=== PATIENT | female | born 2000 | race Caucasian/White ===

== ENCOUNTER 2025-08-04 10:15 | Outpatient (CLI) | payer OTHER, SELFPAY ==
[2025-08-10 09:15] LABS: Pap Test Digital Imaging Done
== END 2025-08-04 10:16 | disposition home or self-care (01) ==
PROVIDERS: Visit Provider Physician Assistant
DX: Z12.4 Encounter for screening for malignant neoplasm of cervix (principal); R35.0 Frequency of micturition
CPT/HCPCS: 87086; 87624; 87625; 88141; 88142; 88175